=== PATIENT | male | born 1995 | race Caucasian/White ===

== ENCOUNTER 2017-09-17 15:39 | Emergency (ER) | payer MEDICAID ==
[2017-09-17 16:13] VITALS: PULSE 60; TEMP 98.2; O2SAT 98
[2017-09-17] MEDS ORDERED: Tmp-Smz 800 mg-160 mg DS Tab PO STA (16:35)
--- NOTE | 2017-09-17 16:36 | C.PDOC ---
History Of Present Illness 21 yo male come in for evaluation of left big toe pain gradually developed over past few days over nail area, today noted redness with yellowish discharges. Pt denies known trauma or injury, fever, chills, deformity, weakness, sensory or vascular deficits to left foot. Ambulate to Ed for evaluation, not in any apparent distress. Time Seen by Provider: 09/17/17 16:27 Chief Complaint (Nursing): Lower Extremity Problem/Injury History Per: Patient Onset/Duration Of Symptoms: Gradual Past Medical History Reviewed: Historical Data, Nursing Documentation, Vital Signs Vital Signs: Last Vital Signs Temp 98.2 F 09/17/17 16:10 Pulse 60 09/17/17 16:10 Resp 16 09/17/17 16:10 BP 108/66 09/17/17 16:10 Pulse Ox 98 09/17/17 16:36 - Medical History PMH: Asthma Family History: States: Unknown Family Hx - Social History Hx Alcohol Use: Yes Hx Substance Use: No - Immunization History Hx Tetanus Toxoid Vaccination: Yes Hx Influenza Vaccination: Yes Review Of Systems Except As Marked, All Systems Reviewed And Found Negative. Constitutional: Negative for: Fever, Chills Musculoskeletal: Positive for: Foot Pain Skin: Positive for: Lesions Neurological: Negative for: Weakness, Numbness Physical Exam - Physical Exam Appears: Well, Non-toxic, No Acute Distress Skin: Normal Color, Warm, No Ecchymosis Extremity: Normal ROM (Left foot), Tenderness (Left toe medial aspect nail), Capillary Refill (less than 2sec to left foot), No Deformity, Swelling (mild over medial aspect nailbed left big toe associated with mild erythema , scant clear discahrges. NO deformity, no flactualnce, no proximal streaking.) Neurological/Psych: Oriented x3, Normal Speech, Normal Motor, Normal Sensation, Normal Reflexes ED Course And Treatment O2 Sat by Pulse Oximetry: 98 Progress Note: On re-eval, pt is afebrile, hemodynamicly stable. non-toxic. left foot: exam c/w early ingrown nailt, (-) flactulance, (-) proximal streaking. FAROM, no neurovascular deficits. Pt advised. ref. 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 return if any new changes. Disposition Counseled Patient/Family Regarding: Studies Performed, Diagnosis, Need For Followup, Rx Given - Disposition Referrals: [facility] at [facility] [Outside] Podiatry Clinic [Outside] Disposition: HOME/ ROUTINE Disposition Time: 16:36 Condition: STABLE Additional Instructions: WARM SALTY WATER FOOT SOAKS DAILY APPLY ANTIBIOTIC CREAM TOPICALLY AFTER SOAKING TAKE MEDICATION PRESCRIBED FOLLOW UP WITH BATTERY CHARGER IN 2-3 DAYS FOR RE-EVALUATION. RETURN IF ANY NEW CHANGES. Prescriptions: Bacitracin OINT 1 applic TP BID #1 tube Sulfamethoxazole/Trimethoprim [Bactrim DS 800 mg-160 mg] 1 tab PO BID #14 tab Instructions: Ingrown Nail (ED) Forms: [facility] ([place]) - Clinical Impression Clinical Impression: Ingrown nail
[2017-09-17] MEDS ORDERED: Tmp-Smz 800 mg-160 mg DS Tab ONE (16:49)
[2017-09-17 16:59] VITALS: BP 110/70; RESP 18
== END 2017-09-17 16:59 | disposition home or self-care (01) ==
LOC: C.ER 15:39
DX: L60.0 Ingrowing nail (principal)